=== PATIENT | female | born 1940 | race Caucasian/White ===

== ENCOUNTER 2018-12-20 09:57 | Inpatient (IN) | payer OTHER ==
--- NOTE | 2018-12-20 10:21 | EDPHY ---
H & P Time Seen by Provider: 12/20/18 10:00 HPI/ROS: Chief complaint. Sick HPI. 78-year-old female presents emergency department with cough for 3 days. She thinks she has been running a fever. She has had runny nose and congestion. She has some central chest discomfort. No abdominal pain, vomiting /diarrhea. No recent travel or known exposures to Infectious Disease. No unusual leg pain or swelling ROS 10 systems were reviewed and negative with the exception of the elements mentioned in the history of present illness Past Medical/Surgical History: Hypertension Social History: Single, nonsmoker, no alcohol Smoking Status: Former smoker Physical Exam: General Appearance: Alert well-developed female mild distress vital signs show an initial O2 saturation 89% on room air Eyes: Pupils equal and round no pallor or injection. ENT, Mouth: Mucous membranes are moist. Respiratory: No retractions. Possible rales left posterior chest Cardiovascular: Regular rate and rhythm. Gastrointestinal: Abdomen is soft and nontender, no masses, bowel sounds normal. Neurological: Awake and alert, sensory and motor exams grossly normal. Skin: Warm and dry, no rashes. Musculoskeletal: Neck is supple nontender. Extremities symmetrical, full range of motion. Psychiatric: Patient is oriented X 3, there is no agitation. Constitutional: Initial Vital Signs Temperature (C) 36.8 C 12/20/18 10:06 Heart Rate 89 12/20/18 10:06 Respiratory Rate 18 12/20/18 10:06 Blood Pressure 154/93 H 12/20/18 10:06 O2 Sat (%) 89 L 12/20/18 10:06 O2 Delivery Mode Nasal Cannula O2 (L/minute) 2 Allergies/Adverse Reactions: No Known Allergies Allergy (Verified 12/20/18 10:06) Home Medications: Medication Instructions Recorded NK [No Known Home Meds] 12/20/18 Medical Decision Making - Diagnostics EKG Interpretation: EKG interpreted by me normal sinus rhythm normal interval. Left axis deviation. QRS is otherwise normal. No significant ST elevation or depression. No arrhythmia. The rate is 82 Imaging Results: Imaging Impressions Chest X-Ray 12/20/18 10:16 Impression: New left upper lobe pneumonia versus mass. Recommend follow-up radiograph in 4-6 weeks. Chest/Thorax CTA 12/20/18 11:57 Impression: 1. Left upper lobe pneumonia and patchy airspace consolidation in the left lower lobe. Recommend follow-up chest radiograph in 4-6 weeks to assure resolution. 2. Small left pleural effusion. No evidence of empyema. 3. Small age indeterminate subsegmental pulmonary embolism in the right lower lobe. 4. Small to moderate hiatal hernia. Findings discussed with Emergency Department physician, Jorge Crockett on 2018, 12:50. Chest x-ray interpreted by me shows new left upper lobe pneumonia versus mass. CT is ordered CT chest shows that this appears to be a pneumonia in the left upper lobe. She also has a filling defect in the right pulmonary artery branches consistent with pulmonary embolus Procedures: IV normal saline, monitor ED Course/Re-evaluation: Subcu Lovenox IV Rocephin after blood cultures I consulted discussed case with Dr. Kellogg, hospitalist who agrees to the admission Patient and I discussed imaging lab results. We discussed treatment plan including recommendation for admission. She expresses understanding Differential Diagnosis: Patient had a new mass left upper lung. It was unclear whether this represented pneumonia or a mass. CT shows that appears to be pneumonia also that the patient probably has a pulmonary embolus - Data Points Laboratory Results: Laboratory Results 12/20/18 10:00 12/20/18 10:00 12/20/18 12/20/18 12/20/18 12:42 10:37 10:34 WBC RBC Hgb Hct MCV MCH MCHC RDW Plt Count MPV Neut % (Auto) Lymph % (Auto) Chambers % (Auto) Eos % (Auto) Baso % (Auto) Nucleat RBC Rel Count Absolute Neuts (auto) Absolute Lymphs (auto) Absolute Monos (auto) Absolute Eos (auto) Absolute Basos (auto) Absolute Nucleated RBC Immature Gran % Seg Neutrophils % Band Neutrophils % Lymphocytes % Monocytes % Eosinophils % Basophils % Metamyelocytes % Myelocytes % Promyelocytes % Blast Cells % Immature Gran # Absolute Seg Neuts Absolute Band Neuts Absolute Lymphocytes Absolute Monocytes Absolute Eosinophils Absolute Basophils Absolute Metamyelocyte Absolute Myelocytes Absolute Promyelocytes Absolute Plasma Cells Nucleated RBCs Absolute Blast Cells Plasma Cells % Platelet Estimate Polychromasia Microcytic Cells Acanthocytes (Spur) VBG Lactic Acid 1.2 mmol/L mmol/L (0.7-2.1) Sodium Potassium Chloride Carbon Dioxide Anion Gap BUN Creatinine Estimated GFR Glucose Calcium POC Troponin I 0.01 ng/mL ng/mL (0.00-0.08) Nasal Influenza A PCR NEGATIVE FOR FLU A (NEGATIVE) Nasal Influenza B PCR NEGATIVE FOR FLU B (NEGATIVE) RSV (PCR) NEGATIVE FOR RSV (NEGATIVE) 12/20/18 12/20/18 10:00 10:00 WBC 4.44 10^3/uL 10^3/uL (3.80-9.50) RBC 4.56 10^6/uL 10^6/uL (4.18-5.33) Hgb 12.7 g/dL g/dL (12.6-16.3) Hct 39.5 % % (38.0-47.0) MCV 86.6 fL fL (81.5-99.8) MCH 27.9 pg pg (27.9-34.1) MCHC 32.2 g/dL L g/dL (32.4-36.7) RDW 14.8 % % (11.5-15.2) Plt Count 195 10^3/uL 10^3/uL (150-400) MPV 9.4 fL fL (8.7-11.7) Neut % (Auto) Not Reported Lymph % (Auto) Not Reported Chambers % (Auto) Not Reported Eos % (Auto) Not Reported Baso % (Auto) Not Reported Nucleat RBC Rel Count Not Reported Absolute Neuts (auto) Not Reported Absolute Lymphs (auto) Not Reported Absolute Monos (auto) Not Reported Absolute Eos (auto) Not Reported Absolute Basos (auto) Not Reported Absolute Nucleated RBC Not Reported Immature Gran % Not Reported Seg Neutrophils % 40.4 % % Band Neutrophils % 47.5 % % Lymphocytes % 4.0 % % Monocytes % 8.1 % % Eosinophils % 0.0 % % Basophils % 0.0 % % Metamyelocytes % 0.0 % % Myelocytes % 0.0 % % Promyelocytes % 0.0 % % Blast Cells % 0.0 % % Immature Gran # Not Reported Absolute Seg Neuts 1.79 10^3/uL 10^3/uL (1.70-6.50) Absolute Band Neuts 2.11 10^3/uL H 10^3/uL (0.00-0.70) Absolute Lymphocytes 0.18 10^3/uL L 10^3/uL (1.00-3.00) Absolute Monocytes 0.36 10^3/uL 10^3/uL (0.30-0.80) Absolute Eosinophils 0.00 10^3/uL L 10^3/uL (0.03-0.40) Absolute Basophils 0.00 10^3/uL L 10^3/uL (0.02-0.10) Absolute Metamyelocyte 0.00 10^3/mL 10^3/mL (0.00-0.00) Absolute Myelocytes 0.00 10^3/mL 10^3/mL (0.00-0.00) Absolute Promyelocytes 0.00 10^3/uL 10^3/uL (0.00-0.00) Absolute Plasma Cells 0.00 10^3/uL 10^3/uL (0.00-0.00) Nucleated RBCs 0 /100 WBC /100 WBC (0-0) Absolute Blast Cells 0.00 10^3/uL 10^3/uL (0.00-0.00) Plasma Cells % 0.0 % % Platelet Estimate ADEQUATE (ADEQ) Polychromasia 1+ H Microcytic Cells 1+ H Acanthocytes (Spur) 1+ H VBG Lactic Acid Sodium 135 mEq/L mEq/L (135-145) Potassium 3.8 mEq/L mEq/L (3.5-5.2) Chloride 100 mEq/L mEq/L (97-110) Carbon Dioxide 27 mEq/l mEq/l (22-31) Anion Gap 8 mEq/L mEq/L (6-14) BUN 21 mg/dL mg/dL (7-23) Creatinine 0.7 mg/dL mg/dL (0.6-1.0) Estimated GFR > 60 Glucose 99 mg/dL mg/dL (70-100) Calcium 8.3 mg/dL L mg/dL (8.5-10.4) POC Troponin I Nasal Influenza A PCR Nasal Influenza B PCR RSV (PCR) Medications Given: Discontinued Medications Enoxaparin Sodium (Lovenox) 50 mg SC EDNOW ONE Stop: 12/20/18 12:50 Last Admin: 12/20/18 14:01 Dose: 50 mg Sodium Chloride (Ns) 1,000 mls @ 0 mls/hr IV EDNOW ONE; Wide Open PRN Reason: Protocol Stop: 12/20/18 10:27 Last Admin: 12/20/18 10:32 Dose: 1,000 mls Ceftriaxone Sodium/Dextrose (Rocephin 1 Gm (Premix)) 50 mls @ 100 mls/hr IV EDNOW ONE PRN Reason: Protocol Stop: 12/20/18 13:18 Last Admin: 12/20/18 12:57 Dose: 50 mls Point of Care Test Results: Chemistry 12/20/18 10:37 POC Troponin I 0.01 ng/mL ng/mL (0.00-0.08) Departure - Departure Disposition: [facility] Inpatient Acute Clinical Impression: Pneumonia Qualifiers: Pneumonia type: due to unspecified organism Laterality: left Lung location: upper lobe of lung Qualified Code(s): J18.1 - Lobar pneumonia, unspecified organism Pulmonary embolus Qualifiers: Pulmonary embolism type: unspecified Chronicity: unspecified Acute cor pulmonale presence: without acute cor pulmonale Qualified Code(s): I26.99 - Other pulmonary embolism without acute cor pulmonale Condition: Fair
[2018-12-20] MEDS ORDERED: NS 1,000 ML IV ONE (10:26)
[2018-12-20 10:27] LABS: PLATELET COUNT 195 10^3/uL (150-400)
[2018-12-20] MEDS ORDERED: IOPAMIDOL (ISOVUE 370) 100 ML BTL IV ONE (12:07)
[2018-12-20] MEDS ORDERED: ENOXAPARIN 60 MG/0.6 ML SYR SC ONE (12:49)
[2018-12-20] MEDS ORDERED: ONDANSETRON DISINTEGRATING 4 MG TAB PO PRN (13:39)
[2018-12-20] MEDS ORDERED: ONDANSETRON 4 MG/2 ML VIAL IVP PRN (13:39)
--- NOTE | 2018-12-20 13:49 | PDGENHP ---
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 She is homeless however informs me she has arrangements w/ [facility] to live in a staircase within their facility. She occasionally produces yellow sputum. Endorses nausea and intermittent palpitations. Denies chest pain, SOB, vomiting, diarrhea, constipation, dysuria, fever, or chills. Chest CTA reveal pneumonia in left upper lobe and a filling defect in pulmonary artery branch indicated pulmonary embolism. She is being admitted for treatment and monitoring. History Information - Allergies/Home Medication List Allergies/Adverse Reactions: No Known Allergies Allergy (Verified 12/20/18 10:06) Home Medications: NK [No Known Home Meds] 12/20/18 [Last Taken Unknown] I have personally reviewed and updated: family history, medical history, social history, surgical history Past Medical History: Rib fractures and contusions (2010). Subdural hematoma. Guillain-Inola Syndrome. Hx of cellulitis - Surgical History Reports: no pertinent surgical hx Additional surgical history: Denies any surgeries - Family History Positive for: non-pertinent - Social History Smoking Status: Never smoked Alcohol Use: None Drug Use: None Additional social history: Transient, lives [facility] Review of Systems Review of Systems: ROS: 10pt was reviewed & negative except for what was stated in HPI & below Physical Exam Physical Exam: Lab data and imaging were reviewed. Case discussed w/ admitting physician, Dr. Ron Kellogg. Lactic acid: 1.2 BUN/Cr: 21/0.7 Negative flu or RSV CXR/Chest CTA: see HPI Temp Pulse Resp BP Pulse Ox 37 C 82 16 183/90 H 94 12/20/18 12:30 12/20/18 12:30 12/20/18 12:30 12/20/18 12:30 12/20/18 12:30 Constitutional: uncomfortable, unkempt Eyes: PERRL, anicteric sclera, EOMI Ears, Nose, Mouth, Throat: moist mucous membranes, hearing normal, ears appear normal, no oral mucosal ulcers Cardiovascular: regular rate and rhythym, no murmur, rub, or gallop, No edema Peripheral Pulses: 2+: dorsalis-pedis (R) (Radial 2+), dorsalis-pedis (L) ( Radial 2+) Respiratory: reduced air movement Gastrointestinal: normoactive bowel sounds, soft, non-tender abdomen, no palpable masses Genitourinary: no bladder fullness, no bladder tenderness Skin: warm, normal color, no rashes or abrasions, no fluctuance, no induration, No mottled Musculoskeletal: full muscle strength, no muscle tenderness, normal joint ROM, no joint effusions Neurologic: AAOx3, sensation intact bilaterally, CN II-XII Intact Psychiatric: interacting appropriately, not anxious, not encephalopathic, thought process linear Lymph, Heme, Immunologic: no cervical LAD, no supraclavicular LAD Lab Data & Imaging Review 12/20/18 10:00 12/20/18 10:00 WBC 4.44 10^3/uL (3.80-9.50) 12/20/18 10:00 RBC 4.56 10^6/uL (4.18-5.33) 12/20/18 10:00 Hgb 12.7 g/dL (12.6-16.3) 12/20/18 10:00 Hct 39.5 % (38.0-47.0) 12/20/18 10:00 MCV 86.6 fL (81.5-99.8) 12/20/18 10:00 MCH 27.9 pg (27.9-34.1) 12/20/18 10:00 MCHC 32.2 g/dL (32.4-36.7) L 12/20/18 10:00 RDW 14.8 % (11.5-15.2) 12/20/18 10:00 Plt Count 195 10^3/uL (150-400) 12/20/18 10:00 MPV 9.4 fL (8.7-11.7) 12/20/18 10:00 Neut % (Auto) Not Reported 12/20/18 10:00 Lymph % (Auto) Not Reported 12/20/18 10:00 [place] % (Auto) Not Reported 12/20/18 10:00 Eos % (Auto) Not Reported 12/20/18 10:00 Baso % (Auto) Not Reported 12/20/18 10:00 Nucleat RBC Rel Count Not Reported 12/20/18 10:00 Absolute Neuts (auto) Not Reported 12/20/18 10:00 Absolute Lymphs (auto) Not Reported 12/20/18 10:00 Absolute Monos (auto) Not Reported 12/20/18 10:00 Absolute Eos (auto) Not Reported 12/20/18 10:00 Absolute Basos (auto) Not Reported 12/20/18 10:00 Absolute Nucleated RBC Not Reported 12/20/18 10:00 Immature Gran % Not Reported 12/20/18 10:00 Seg Neutrophils % 40.4 % 12/20/18 10:00 Band Neutrophils % 47.5 % 12/20/18 10:00 Lymphocytes % 4.0 % 12/20/18 10:00 Monocytes % 8.1 % 12/20/18 10:00 Eosinophils % 0.0 % 12/20/18 10:00 Basophils % 0.0 % 12/20/18 10:00 Metamyelocytes % 0.0 % 12/20/18 10:00 Myelocytes % 0.0 % 12/20/18 10:00 Promyelocytes % 0.0 % 12/20/18 10:00 Blast Cells % 0.0 % 12/20/18 10:00 Immature Gran # Not Reported 12/20/18 10:00 Absolute Seg Neuts 1.79 10^3/uL (1.70-6.50) 12/20/18 10:00 Absolute Band Neuts 2.11 10^3/uL (0.00-0.70) H 12/20/18 10:00 Absolute Lymphocytes 0.18 10^3/uL (1.00-3.00) L 12/20/18 10:00 Absolute Monocytes 0.36 10^3/uL (0.30-0.80) 12/20/18 10:00 Absolute Eosinophils 0.00 10^3/uL (0.03-0.40) L 12/20/18 10:00 Absolute Basophils 0.00 10^3/uL (0.02-0.10) L 12/20/18 10:00 Absolute Metamyelocyte 0.00 10^3/mL (0.00-0.00) 12/20/18 10:00 Absolute Myelocytes 0.00 10^3/mL (0.00-0.00) 12/20/18 10:00 Absolute Promyelocytes 0.00 10^3/uL (0.00-0.00) 12/20/18 10:00 Absolute Plasma Cells 0.00 10^3/uL (0.00-0.00) 12/20/18 10:00 Nucleated RBCs 0 /100 WBC (0-0) 12/20/18 10:00 Absolute Blast Cells 0.00 10^3/uL (0.00-0.00) 12/20/18 10:00 Plasma Cells % 0.0 % 12/20/18 10:00 Platelet Estimate ADEQUATE (ADEQ) 12/20/18 10:00 Polychromasia 1+ H 12/20/18 10:00 Microcytic Cells 1+ H 12/20/18 10:00 Acanthocytes (Spur) 1+ H 12/20/18 10:00 VBG Lactic Acid 1.2 mmol/L (0.7-2.1) 12/20/18 12:42 Sodium 135 mEq/L (135-145) 12/20/18 10:00 Potassium 3.8 mEq/L (3.5-5.2) 12/20/18 10:00 Chloride 100 mEq/L (97-110) 12/20/18 10:00 Carbon Dioxide 27 mEq/l (22-31) 12/20/18 10:00 Anion Gap 8 mEq/L (6-14) 12/20/18 10:00 BUN 21 mg/dL (7-23) 12/20/18 10:00 Creatinine 0.7 mg/dL (0.6-1.0) 12/20/18 10:00 Estimated GFR > 60 12/20/18 10:00 Glucose 99 mg/dL (70-100) 12/20/18 10:00 Calcium 8.3 mg/dL (8.5-10.4) L 12/20/18 10:00 POC Troponin I 0.01 ng/mL (0.00-0.08) 12/20/18 10:37 Nasal Influenza A PCR NEGATIVE FOR FLU A (NEGATIVE) 12/20/18 10:34 Nasal Influenza B PCR NEGATIVE FOR FLU B (NEGATIVE) 12/20/18 10:34 RSV (PCR) NEGATIVE FOR RSV (NEGATIVE) 12/20/18 10:34 Assessment & Plan Plan: 78 y/o female presenting w/ a couple days worth of fatigue and productive cough. Imaging reveals pneumonia and PE. 1. Acute hypoxic respiratory failure 2/2 CAP and PE: Chest CTA results of left upper lobe PNA and patchy airspace consolidation in left lower lobe. Right lower lobe w/ small subsegmental PE. Lactic acid 1.2. She received Rocephin and Lovenox subq in ED. -Blood cultures and UA pending -Cont Rocephin + Azithromycin -Heparin drip; transition to PO or subq in AM -Recommend outpatient f/u imaging of consolidation noted in left lower lobe 2. Nausea: treat symptoms w/ anti-emetics PRN 3. Pancytopenia: Appears chronic throughout the hx of her visits but most remarkable is band neutrophils 47.5%. Incorporating her chest imaging w/ her labwork, recommend her to f/u outpatient w/her PCP for further evaluation of these findings within the next 4-6 weeks. Diet: Regular VTE ppx: Heparin drip, SCDs Code: Full Dispo: Admit to obs
[2018-12-20] MEDS ORDERED: HEPARIN/DEXTROSE 500 ML IV SCH (14:15)
--- NOTE | 2018-12-20 15:10 | CPEKG ---
Test Reason : OPEN Blood Pressure : / mmHG Vent. Rate : 082 BPM Atrial Rate : 083 BPM P-R Int : 142 ms QRS Dur : 084 ms QT Int : 374 ms P-R-T Axes : 037 006 061 degrees QTc Int : 437 ms Sinus rhythm Probable left atrial enlargement Consider inferior infarct Anterior infarct, old Confirmed by Jayesh Crockett ([id number]) on 12/20/2018 3:10:13 PM Referred By: JAYESH CROCKETT Confirmed By:Jayesh Crockett
--- NOTE | 2018-12-20 15:20 | ASMTCMCOM ---
CM Note CM Note Notes: Assistance requested by ED RN Lily. Pt reports being homeless and connected with [employer]. She was unable to provide detailed information regarding the reasons for her current living circumstances. Pt has not been at [facility] since 2011 and she was homeless at that time. She did disclose that she has been in [place] since she was 23 years old and she has no family connections. She is and has "limited income" but no additional details were provided. Pt. made extremely limited eye contact and was difficult to understand. She was emaciated and dirty. Lily reported that pt. had feces caked on to her body that appeared to have been there for some time. She had to scrub some skin off in the process of cleaning her up. Director of , Dayanara Somers was notified as pt. is familiar to [employer]. Additional information to follow. CM to report to [employer] and to [facility]. DC plans TBD, [place] to follow. Date Signed: 12/20/2018 03:18 PM Electronically Signed By:Darion Garcia LCSW
[2018-12-20 15:26] LABS: PLATELET COUNT 181 10^3/uL (150-400)
[2018-12-20] MEDS: AZITHROMYCIN IV 500 MG in NS 250 ML IV SCH (15:30)
[2018-12-20 15:37] LABS: INR 1.16 (0.83-1.16); PROTIME(PATIENT) 14.3 SEC (12.0-15.0)
--- NOTE | 2018-12-20 16:56 | HOSPPROG ---
Hospitalist Progress Note Assessment/Plan: I have personally seen and evaluated patient. I agree with the assessment and plan as outlined in a separate note by CE[employer] FEED DEPARTMENT SUPERVISOR, Mita Adler. Objective: Vital Signs Temp Pulse Resp BP Pulse Ox 37.6 C 79 16 147/84 H 94 12/20/18 15:23 12/20/18 15:23 12/20/18 15:23 12/20/18 15:23 12/20/18 15:23 Laboratory Results 12/20/18 13:10 12/19/18 12/20/18 12/21/18 05:59 05:59 05:59 Intake Total 1050 Balance 1050 PT 14.3 SEC (12.0-15.0) 12/20/18 13:10 INR 1.16 (0.83-1.16) 12/20/18 13:10 ICD10 Worksheet Patient Problems: Problems Problem Status Onset Pneumonia Acute Pulmonary embolus Acute Abdominal pain Active Closed fracture of rib Active Leukopenia Active Traumatic brain injury Active
[2018-12-20] MEDS: ACETAMINOPHEN 325 MG TAB PO PRN (20:36)
[2018-12-21 01:12] LABS: PLATELET COUNT 156 10^3/uL (150-400)
[2018-12-21] MEDS ORDERED: HEPARIN 10,000 UNIT/10 ML MDV (1,000 UNIT/ML) IVP PRN (02:00)
[2018-12-21] MEDS: HEPARIN/DEXTROSE 500 ML IV SCH (02:08)
[2018-12-21 02:47] LABS: INR 1.19 (0.83-1.16); PROTIME(PATIENT) 14.6 SEC (12.0-15.0)
[2018-12-21] MEDS ORDERED: NS 1,000 ML IV SCH (08:45)
[2018-12-21] MEDS: AZITHROMYCIN IV 500 MG in NS 250 ML IV SCH (10:25)
[2018-12-22] MEDS: HEPARIN/DEXTROSE 500 ML IV SCH (09:00)
[2018-12-22] MEDS: AZITHROMYCIN IV 500 MG in NS 250 ML IV SCH (09:13)
--- NOTE | 2018-12-22 14:33 | HOSPPROG ---
Hospitalist Progress Note Assessment/Plan: 78 y/o transient female w/ hx of cellulitis, subdural hematomas and Guillain- [place] Syndrome presenting to emergency room after feeling fatigued and having a productive cough for the last couple of days. First encounter, chart reviewed. *left upper lobe pna -Ceftriaxone and Azithromycin (12/21) -one blood cx shows gram + cocci in clusters (PCR shows no organism)-will await and see what grows out -second blood cx shows no growth -no influenza, negative RSV -small left pleural effusion *PE -small subsegmental in the r lower lobe -on heparin gtt -will transition to Eliquis this evening (Medicare usually covers) *nausea -no complaints *pancytopenia/anemia -will follow *hypokalemia -will start IV fluids w K, she is not eating much *homelessness -her skin and appearance doesn't appear she is homeless -per CM she is w the [facility] *acute metabolic encephalopathy -unclear of what Mckenzie's baseline is -possibly caused by pna, will ask ST to further evaluate *hematuria -should get OP f/u once the above resolves *underweight w a BMI of 18 -add ensure *DVT prophylaxis: LMWH *plan: she will require another midnight stay for evaluation and treatment of the pna, follow blood cx, ST, PT and OT to see Subjective: Mckenzie said she has no idea how she got here. No complaints. Objective: Vital Signs Temp Pulse Resp BP Pulse Ox 36.6 C 71 16 98/56 L 94 12/22/18 11:58 12/22/18 11:58 12/22/18 11:58 12/22/18 11:58 12/22/18 11:58 Laboratory Results 12/22/18 05:05 12/21/18 09:30 12/21/18 12/22/18 12/23/18 05:59 05:59 05:59 Intake Total 1589 1202.8 240 Balance 1589 1202.8 240 PT 14.6 SEC (12.0-15.0) 12/21/18 02:00 INR 1.19 (0.83-1.16) H 12/21/18 02:00 - Physical Exam Constitutional: chronically ill appearing, other (thin) Eyes: PERRL Ears, Nose, Mouth, Throat: hearing normal Cardiovascular: regular rate and rhythym Respiratory: no respiratory distress, reduced air movement (left middle lobe down) Gastrointestinal: normoactive bowel sounds Skin: warm, No normal color (pale) Neurologic: other (oriented to herself and where she is, unable to provide any information of where she lives or how she got to the hospital) Psychiatric: flat affect, poor memory ICD10 Worksheet Patient Problems: Problems Problem Status Onset Pneumonia Acute Pulmonary embolus Acute Abdominal pain Active Closed fracture of rib Active Leukopenia Active Traumatic brain injury Active
--- NOTE | 2018-12-22 15:25 | PDMN ---
Medical Necessity Medical necessity: MCG: M282 cPNA: pt with persistent productive cough, homeless, N/ palpitations, pancytopenia, CXR shows ULL pna, small PE, status changed to INPT 12/22/18 for ongoing med nec tx., further monitoring and tx needed > 2MN IV abx, IV heparin
--- NOTE | 2018-12-22 16:03 | ASMTCMCOM ---
CM Note CM Note Notes: Pts case discussed w/ Sheila Qureshi NP. CM met w/ pt for dispo planning. Pt was unable to provide who the president of the [place] was, what town she is in and the date. Pt was able to provide pts full name and . Pt will have a cog eval. Pt has a PE. Pt will get started on eliquis. CM to follow. Plan: [facility] Date Signed: 12/22/2018 04:03 PM Electronically Signed By:AMANUEL Salazar
[2018-12-22] MEDS ORDERED: NS W/ 20 KCl/L 1,000 ML IV SCH (18:00)
[2018-12-22] MEDS: APIXABAN 5 MG TAB PO SCH (20:15)
[2018-12-23] MEDS: APIXABAN 5 MG TAB PO SCH ×2 (08:50→20:14)
[2018-12-23] MEDS: AZITHROMYCIN IV 500 MG in NS 250 ML IV SCH (09:37)
[2018-12-23] MEDS ORDERED: PROTOCOL POTASSIUM 1 DOSE MISC PRN (09:58)
--- NOTE | 2018-12-23 13:40 | HOSPPROG ---
Hospitalist Progress Note Assessment/Plan: 78 y/o transient female w/ hx of cellulitis, subdural hematomas and Guillain- [place] Syndrome presenting to emergency room after feeling fatigued and having a productive cough for the last couple of days. First encounter, chart reviewed. *left upper lobe pna -Ceftriaxone and Azithromycin (12/21) -one blood cx shows gram + cocci in clusters (PCR shows no organism)-will await and see what grows out -second blood cx shows no growth -no influenza, negative RSV -small left pleural effusion *PE -small subsegmental in the r lower lobe -was on heparin gtt, now on Eliquis *nausea -no complaints *pancytopenia/anemia -will follow *hypokalemia -replace as needed, start protocol *homelessness -her skin and appearance doesn't appear she is homeless -per CM she is w the [facility] *acute metabolic encephalopathy -unclear of what Mckenzie's baseline is -possibly caused by pna, will ask ST to further evaluate, this is pending *hematuria -should get OP f/u once the above resolves *underweight w a BMI of 18 -add ensure *DVT prophylaxis: LMWH *plan: she will require another midnight stay for evaluation and treatment of the pna, follow blood cx, ST, PT and OT to see. repeat CXR in a.m., await cog eval Subjective: less confused, but still Encephalopathic. on 3-4 L O2. no cp or sob. Objective: Vital Signs Temp Pulse Resp BP Pulse Ox 36.9 C 74 16 102/57 L 90 L 12/23/18 11:58 12/23/18 11:58 12/23/18 11:58 12/23/18 11:58 12/23/18 11:58 Laboratory Results 12/23/18 06:03 12/22/18 12/23/18 12/24/18 05:59 05:59 05:59 Intake Total 1240 Balance 1240 PT 14.6 SEC (12.0-15.0) 12/21/18 02:00 INR 1.19 (0.83-1.16) H 12/21/18 02:00 - Physical Exam Constitutional: chronically ill appearing Eyes: PERRL, EOMI Ears, Nose, Mouth, Throat: moist mucous membranes, hearing normal Cardiovascular: regular rate and rhythym, No edema Respiratory: no respiratory distress, no rales or rhonchi, reduced air movement Gastrointestinal: normoactive bowel sounds, soft, non-tender abdomen Skin: warm Neurologic: No AAOx3 Psychiatric: interacting appropriately, not anxious, encephalopathic Lymph, Heme, Immunologic: No petechiae ICD10 Worksheet Patient Problems: Problems Problem Status Onset Chronic Disease Mgmt/Transitional Care Acute Pneumonia Acute Pulmonary embolus Acute Abdominal pain Active Closed fracture of rib Active Leukopenia Active Traumatic brain injury Active
[2018-12-23] MEDS ORDERED: POTASSIUM CL 10 MEQ TAB PO ONE (21:56)
[2018-12-24] MEDS ORDERED: POTASSIUM CL 10 MEQ TAB PO ONE ×2 (08:01→19:51)
[2018-12-24] MEDS: APIXABAN 5 MG TAB PO SCH ×2 (09:10→21:32)
[2018-12-24] MEDS: AZITHROMYCIN IV 500 MG in NS 250 ML IV SCH (09:11)
--- NOTE | 2018-12-24 10:05 | HOSPPROG ---
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 First encounter, chart reviewed. *left upper lobe pna -Ceftriaxone and Azithromycin (12/21 - 12/24). CXR today shows worsening infiltrates. O2 needs stable around 3-4 Liters. Given worsening infiltrates, will change abx to Zosyn. Will cont Madison for Atypical, but likely can stop at 5 days. Query aspiration. Remains Afebrile. recheck labs in a.m. -one blood cx shows gram + cocci in clusters (PCR shows no organism)-will await and see what grows out. Likely false positive -second blood cx shows no growth -no influenza, negative RSV -small left pleural effusion *PE -small subsegmental in the r lower lobe -was on heparin gtt, now on Eliquis *nausea -no complaints *pancytopenia/anemia -will follow *hypokalemia -replace as needed, start protocol *homelessness -her skin and appearance doesn't appear she is homeless -per CM she is w [facility] *acute metabolic encephalopathy -unclear of what Mckenzie's baseline is -possibly caused by pna, ST attempted Cog eval on 12/23, but she refused to answer questions *hematuria -should get OP f/u once the above resolves *underweight w a BMI of 18 -add ensure *DVT prophylaxis: LMWH *plan: Still hypoxemic, appears improving. not in resp distress. cont with current mgmt. Subjective: still confused. refused to do cog eval yesterday. on 3-4 Liters O2 Objective: Vital Signs Temp Pulse Resp BP Pulse Ox 36.5 C 65 16 125/75 H 93 12/24/18 08:33 12/24/18 08:33 12/24/18 08:33 12/24/18 08:33 12/24/18 08:33 Laboratory Results 12/24/18 05:04 12/23/18 12/24/18 12/25/18 05:59 05:59 05:59 Intake Total 1240 1 Balance 1240 1 PT 14.6 SEC (12.0-15.0) 12/21/18 02:00 INR 1.19 (0.83-1.16) H 12/21/18 02:00 - Physical Exam Constitutional: no apparent distress Eyes: PERRL, EOMI Ears, Nose, Mouth, Throat: moist mucous membranes, hearing normal Cardiovascular: regular rate and rhythym, No edema Respiratory: no respiratory distress, reduced air movement Gastrointestinal: normoactive bowel sounds, soft, non-tender abdomen Skin: warm Neurologic: No AAOx3 Psychiatric: interacting appropriately, encephalopathic, agitated Lymph, Heme, Immunologic: No petechiae ICD10 Worksheet Patient Problems: Problems Problem Status Onset Chronic Disease Mgmt/Transitional Care Acute Pneumonia Acute Pulmonary embolus Acute Abdominal pain Active Closed fracture of rib Active Leukopenia Active Traumatic brain injury Active
[2018-12-24] MEDS ORDERED: PIPERACILLIN/TAZO 4.5 GM/DEX 100 ML IV SCH (14:00)
--- NOTE | 2018-12-24 15:43 | ASMTCMCOM ---
CM Note CM Note Notes: Pt is a homeless woman who stays at [facility]. Pt to have a cog eval, concern for her mental state. CM w/f for dc needs but otherwise will dc to . DC Plan: [facility] Date Signed: 12/24/2018 03:42 PM Electronically Signed By:Daya Hemphill RN
[2018-12-24] MEDS: PIPERACILLIN/TAZO 3.375 GM/DEX 50 ML IV SCH ×2 (15:50→21:33)
[2018-12-25] MEDS: PIPERACILLIN/TAZO 3.375 GM/DEX 50 ML IV SCH ×4 (03:16→20:22)
[2018-12-25 05:15] LABS: PLATELET COUNT 260 10^3/uL (150-400)
[2018-12-25] MEDS ORDERED: POTASSIUM CL 10 MEQ TAB PO ONE ×2 (07:24→20:03)
[2018-12-25] MEDS: APIXABAN 5 MG TAB PO SCH ×2 (08:00→20:22)
[2018-12-25] MEDS: AZITHROMYCIN IV 500 MG in NS 250 ML IV SCH (09:32)
--- NOTE | 2018-12-25 12:12 | HOSPPROG ---
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 First encounter, chart reviewed. *left upper lobe pna -Ceftriaxone and Azithromycin (12/21 - 12/24) -Treated -O2 needs stable around 3-4 Liters. -Given worsening infiltrates, will change abx to Zosyn. -cont [place] for Atypical, but likely can stop at 5 days. -Query aspiration. Remains Afebrile. -one blood cx shows gram + cocci in clusters (PCR shows no organism)-will await and see what grows out. Likely false positive -second blood cx shows no growth -no influenza, negative RSV -small left pleural effusion *PE -small subsegmental in the r lower lobe -was on heparin gtt, now on Eliquis *nausea -no complaints *pancytopenia/anemia -will follow *hypokalemia -replace as needed, start protocol *homelessness -her appearance doesn't appear she is homeless -per CM she is w [facility] -D/W CM *acute metabolic encephalopathy -unclear of what Mckenzie's baseline is -possibly caused by pna, ST attempted Cog eval on 12/23, but she refused to answer questions -no memory per pt -attempt cog eval again *hematuria -should get OP f/u once the above resolves *underweight w a BMI of 18 -add ensure *DVT prophylaxis: LMWH *plan: Still hypoxemic, appears improving. -not in resp distress. cont with current mgmt. -dispo unclear given memory issues Subjective: Up in bed. Confused. No pain. No memory. Objective: Vital Signs Temp Pulse Resp BP Pulse Ox 36.7 C 61 16 137/70 H 90 L 12/25/18 07:53 12/25/18 07:53 12/25/18 07:53 12/25/18 07:53 12/25/18 07:53 Laboratory Results 12/25/18 04:47 12/25/18 04:47 12/24/18 12/25/18 12/26/18 05:59 05:59 05:59 Intake Total 1 200 Balance 1 200 PT 14.6 SEC (12.0-15.0) 12/21/18 02:00 INR 1.19 (0.83-1.16) H 12/21/18 02:00 - Physical Exam Constitutional: appears nourished, not in pain, chronically ill appearing Eyes: PERRL, anicteric sclera, EOMI Ears, Nose, Mouth, Throat: moist mucous membranes, hearing normal, ears appear normal Cardiovascular: regular rate and rhythym, No JVD, No edema Respiratory: no respiratory distress, no rales or rhonchi, reduced air movement Gastrointestinal: normoactive bowel sounds, No tenderness, No ascites Skin: warm, normal color, No mottled Musculoskeletal: normal joint ROM, no joint effusions, generalized weakness Neurologic: No AAOx3 Psychiatric: anxious, flat affect, poor insight, poor judgement, No thought process linear ICD10 Worksheet Patient Problems: Problems Problem Status Onset Chronic Disease Mgmt/Transitional Care Acute Traumatic brain injury Active Closed fracture of rib Active Abdominal pain Active Leukopenia Active Pneumonia Acute Pulmonary embolus Acute
[2018-12-26] MEDS: PIPERACILLIN/TAZO 3.375 GM/DEX 50 ML IV SCH ×4 (03:33→21:12)
[2018-12-26] MEDS ORDERED: POTASSIUM CL 10 MEQ TAB PO ONE ×2 (07:44→20:51)
[2018-12-26] MEDS: APIXABAN 5 MG TAB PO SCH ×2 (08:21→21:11)
[2018-12-26] MEDS: ACETAMINOPHEN 325 MG TAB PO PRN (08:22)
--- NOTE | 2018-12-26 13:31 | HOSPPROG ---
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 *left upper lobe pna -Ceftriaxone and Azithromycin (12/21 - 12/24) -Treated -O2 needs stable around 3 Liters. -treated with Zosyn, likely DC soon -DC Azithro -Query aspiration. Remains Afebrile. -one blood cx shows gram + cocci in clusters (PCR shows no organism)-will await and see what grows out. Likely false positive -second blood cx shows no growth -no influenza, negative RSV -small left pleural effusion *PE -small subsegmental in the r lower lobe -was on heparin gtt, now on Eliquis *nausea -no complaints *pancytopenia/anemia -will follow *hypokalemia -replace as needed *homelessness -her appearance doesn't appear she is homeless -per CM she is w [facility] -D/W CM *acute metabolic encephalopathy -unclear of what Mckenzie's baseline is -possibly caused by pna, ST attempted Cog eval on 12/23, but she refused to answer questions -no memory per pt -attempt cog eval again *hematuria -should get OP f/u once the above resolves *underweight w a BMI of 18 -add ensure *DVT prophylaxis: LMWH *plan: Still hypoxemic, appears improving. -not in resp distress. cont with current mgmt. -dispo unclear given memory issues -will need SNF rehab Subjective: Feeling a bit better today. No new issues. No pain. Objective: Vital Signs Temp Pulse Resp BP Pulse Ox 36.5 C 56 L 16 148/83 H 95 12/26/18 08:00 12/26/18 08:00 12/26/18 08:00 12/26/18 08:00 12/26/18 08:00 Laboratory Results 12/25/18 04:47 12/26/18 05:04 12/25/18 12/26/18 12/27/18 05:59 05:59 05:59 Intake Total 200 Balance 200 PT 14.6 SEC (12.0-15.0) 12/21/18 02:00 INR 1.19 (0.83-1.16) H 12/21/18 02:00 - Physical Exam Constitutional: appears nourished, not in pain Eyes: PERRL, anicteric sclera Ears, Nose, Mouth, Throat: moist mucous membranes, hearing normal Cardiovascular: No JVD, No edema Respiratory: no respiratory distress, reduced air movement Gastrointestinal: No tenderness, No ascites Skin: warm, normal color Musculoskeletal: no joint effusions, generalized weakness Psychiatric: not anxious, poor insight, poor judgement, poor memory ICD10 Worksheet Patient Problems: Problems Problem Status Onset Chronic Disease [facility]/Transitional Care Acute Traumatic brain injury Active Closed fracture of rib Active Abdominal pain Active Leukopenia Active Pneumonia Acute Pulmonary embolus Acute
--- NOTE | 2018-12-26 15:22 | ASMTCMCOM ---
CM Note CM Note Notes: Spoke with hospitalist and pt's RN. Pt is extremely encephalopathic and refusing cog evals. PT and OT are recommending SNF upon discharge. Pt is homeless and connected with [facility] who have been made aware of her admission. Referrals have been made to various SNFs that also have LTC programs. CM to follow. D/C Plan: SNF Date Signed: 12/26/2018 03:21 PM Electronically Signed By:Ghazal Banuelos
[2018-12-27] MEDS: PIPERACILLIN/TAZO 3.375 GM/DEX 50 ML IV SCH ×3 (03:37→14:13)
[2018-12-27] MEDS: APIXABAN 5 MG TAB PO SCH (08:03)
[2018-12-27 08:28] VITALS: BP 132/67
[2018-12-27] MEDS ORDERED: POTASSIUM CL 10 MEQ TAB PO ONE (08:56)
--- NOTE | 2018-12-27 14:54 | PDIAF ---
- Diagnosis Diagnosis: PNA Code Status: Full Code - Medication Management Discharge Medications: electronically signed and located in the Home Medication List. PICC Care - Routine: N/A - Orders Services needed: Registered Nurse, Physical Therapy, Occupational Therapy Isolation Type: None Diet Recommendation: no restrictions on diet - Follow Up Care Current Providers and Referrals: Patient,NotPresent [Unknown] - As per Instructions
--- NOTE | 2018-12-27 15:12 | ASMTLACE ---
LACE Length of stay for Answers: 4-6 days current admission Acuity / Level of Answers: Yes Care: Did the patient have an inpatient admission? 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
--- NOTE | 2018-12-27 15:12 | ASMTDCNOTE ---
Case Management Discharge Discharge Order Complete? Answers: Yes Patient to Obtain Answers: Other Notes: [facility] Medications Transportation Arranged Answers: Other Notes: SNF Transport will Pick (Date 12/27/2018 05:30 PM & Time) Faxed Final Orders Answers: Yes Agency/Facility Transfer Answers: Yes Report Printed & Faxed to Receiving Agency Family Notified Answers: No Notes: none Discharge Comments Notes: Pt to discharge to [facility] for Medicare days with possibility to extend to LTC. Pt is agreeable but concerned that she will be a "prisoner". CM explained that pt has the right to leave but she will have to be homeless. Pt understands it is not safe for her to be homeless at this time. RN given number for RN report. No further CM needs noted at this time. Date Signed: 12/27/2018 03:11 PM Electronically Signed By:Ghazal Banuelos
--- NOTE | 2018-12-27 15:18 | ASDISCHSUM ---
Discharge Information Plan Status:SNF Medically Cleared to Leave:12/27/2018 Discharge Date:12/27/2018 CM D/C Disposition:Detention Facility ADT D/C Disposition:Detention Facility Projected Discharge Date:12/26/2018 11:00 AM Transportation at D/C:Wheelchair Van Discharge Delay Reason: Follow-Up Date:12/26/2018 11:00 AM Discharge Slot: Final Diagnosis:PNA Placement Information Referral Type:*Half-Way/SNF Referral ID:[id number] Provider Name:Kim Keithulder Address 1:[address] Address 2: City:[place] Selection Factors: State:[place] Patient Contact Information Contact Name:MARCIALDelfina Relationship: Address: Home Phone: Work Phone: City: [facility] [place] Phone: [facility] Code: Email: Financial Information Financial Class:Medicare Primary Plan Desc:MEDICARE INPATIENT Primary Plan Number:[id number] Secondary Plan Desc: Secondary Plan Number: Assessment Information [facility] Progress Note CM Note CM Note Notes: Assistance requested by ED SAIMA Bautista. Pt reports being homeless and connected with [facility]. She was unable to provide detailed information regarding the reasons for her current living circumstances. Pt has not been at [facility] since 2011 and she was homeless at that time. She did disclose that she has been in [place] since she was 23 years old and she has no family connections. She is and has "limited income" but no additional details were provided. Pt. made extremely limited eye contact and was difficult to understand. She was emaciated and dirty. Lily reported that pt. had feces caked on to her body that appeared to have been there for some time. She had to scrub some skin off in the process of cleaning her up. Director of CM, Dayanara Somers was notified as pt. is familiar to [facility]. Additional information to follow. CM to report to [facility] and to [facility]. [facility]KKO plans TBD, [place] to follow. Date Signed: 12/20/2018 03:18 PM Electronically Signed By:Darion Garcia LCSW LACE LACE Length of stay for Answers: 4-6 days current admission Acuity / Level of Answers: Yes Care: Did the patient have an inpatient admission? 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 CM Progress Note CM Note CM Note Notes: Pts case discussed w/ Sheila Qureshi NP. CM met w/ pt for dispo planning. Pt was unable to provide who the president of the [place] was, what town she is in and the date. Pt was able to provide pts full name and . Pt will have a cog eval. Pt has a PE. Pt will get started on eliquis. CM to follow. Plan: [facility] Date Signed: 12/22/2018 04:03 PM Electronically Signed By:AMANUEL Salazar [facility] CM Progress Note CM Note CM Note Notes: Pt is a homeless woman who stays at [facility]. Pt to have a cog eval, concern for her mental state. CM w/f for dc needs but otherwise will dc to . DC Plan: [facility] Date Signed: 12/24/2018 03:42 PM Electronically Signed By:Daya Hemphill RN [facility] CM Progress Note CM Note CM Note Notes: Spoke with hospitalist and pt's RN. Pt is extremely encephalopathic and refusing cog evals. PT and OT are recommending SNF upon discharge. Pt is homeless and connected with [facility] who have been made aware of her admission. Referrals have been made to various SNFs that also have LTC programs. CM to follow. D/C Plan: SNF Date Signed: 12/26/2018 03:21 PM Electronically Signed By:Ghazal Banuelos Case Management Discharge Plan Note Case Management Discharge Discharge Order Complete? Answers: Yes Patient to Obtain Answers: Other Notes: [facility] Medications Transportation Arranged Answers: Other Notes: SNF Transport will Pick (Date 12/27/2018 05:30 PM & Time) Faxed Final Orders Answers: Yes Agency/Facility Transfer Answers: Yes Report Printed & Faxed to Receiving Agency Family Notified Answers: No Notes: none Discharge Comments Notes: Pt to discharge to [facility] for Medicare days with possibility to extend to LTC. Pt is agreeable but concerned that she will be a "prisoner". CM explained that pt has the right to leave but she will have to be homeless. Pt understands it is not safe for her to be homeless at this time. RN given number for RN report. No further CM needs noted at this time. Date Signed: 12/27/2018 03:11 PM Electronically Signed By:Ghazal Banuelos Intervention Information Intervention Type:*LALY-Signed Date of Service:12/22/2018 07:50 AM Patient Type:Observation Staff Member:Ashley Daniel Hours: Discipline: Severity: Comment:LALY Signed 12/21
--- NOTE | 2018-12-27 15:32 | GDS ---
[f rep st] DISCHARGE SUMMARY DISCHARGE DIAGNOSES: 1. Pneumonia. 2. Homeless. 3. Pulmonary emboli. 4. Nausea. 5. Pancytopenia. 6. Hypokalemia. 7. Acute metabolic encephalopathy. 8. Hematuria. PHYSICAL EXAM: GENERAL: The patient is alert. VITAL SIGNS: Afebrile at 36.8, pulse 55, respirator y rate is 18, blood pressure is 132/67. She is saturating 96% on 3 L. I have seen and evaluated the patient on the day of discharge. HOSPITAL COURSE: 1. The patient is a 78-year-old female who presented to the emergency room with complaints of shortn ess of breath. She was evaluated and diagnosed with left upper lobe pneumonia. During this hospital ization, she was treated appropriately with antibiotic therapy. Her condition is improved. 2. Pulmonary emboli, small subsegmental in the right lower lobe. She has been treated with heparin drip and now is on Eliquis. 3. Nausea. This has resolved. 4. Pancytopenia with anemia, this is stable. 5. Hypokalemia, replacement. 6. Acute metabolic encephalopathy. The patient refused to participate in cog eval and chooses not t o answer questions. However, she is cognizant and able to make decisions. 7. Hematuria. This is stable. 8. Acute hypoxemic respiratory failure. This is in the setting of pulmonary emboli as well as left upper lobe pneumonia. She will continue supplemental oxygen at the time of disposition. DISCHARGE: She will be discharged to [facility] for further rehabilitation and management. I have d iscussed the patient's disposition with Case Management, as well as the patient who is in agreement w ith the plan. There are no pending studies. DISCHARGE MEDICATIONS: Please refer to EMR form. New medications include Eliquis 10 mg p.o. b.i.d. I spent greater than 35 minutes in the care, coordination, and management of the patient's dispositio n. /[id number]/MODL
== END 2018-12-27 17:52 | DRG 193 ==
LOC: EDUNIT# → INTOOBSV 12:50 → F3E 14:29 → OBSVTOIN 12-22 15:07
PROVIDERS: ADMIT Internal Medicine; ATTEND Internal Medicine
DX: J18.9 Pneumonia, unspecified organism (principal); J96.01 Acute respiratory failure with hypoxia; I26.99 Other pulmonary embolism without acute cor pulmonale; G93.41 Metabolic encephalopathy; E87.6 Hypokalemia; R31.9 Hematuria, unspecified; D61.818 Other pancytopenia; I10 Essential (primary) hypertension; G61.0 Guillain-Barre syndrome; Z87.891 Personal history of nicotine dependence; Z59.0 Homelessness
CPT/HCPCS: 84484-ER; 85520-90; 92507-GN; 92523-GN; 96374; 97116-GP; 97162-GP; 97166-GO; 97530-GO; 97530-GP; 97535-GO; G0378; J0456; J0696; J1644; J1650; J2543; Q9967